=== PATIENT | female | born 1975 | race Hispanic/Latino ===

== ENCOUNTER 2020-11-16 11:52 | Inpatient (IN) | payer OTHER ==
[2020-11-16] MEDS ORDERED: ACETAMINOPHEN 325 MG TAB PO PRN (13:10)
[2020-11-16] MEDS ORDERED: miSOPROStol 200 MCG TAB PR PRN (13:10)
[2020-11-16] MEDS ORDERED: fentaNYL 100 MCG/2 ML INJ IV PRN (13:10)
[2020-11-16] MEDS ORDERED: ONDANSETRON 4 MG/2 ML INJ IV PRN (13:10)
[2020-11-16] MEDS ORDERED: MINERAL OIL 30 ML ORAL LIQD PO PRN (13:10)
[2020-11-16] MEDS ORDERED: ePHEDrine SULFATE 50 MG/1 ML INJ IV PRN (13:10)
[2020-11-16] MEDS ORDERED: OXYTOCIN 10 UNIT/1 ML INJ IM PRN (13:10)
[2020-11-16] MEDS ORDERED: NalbUPHINE 10 MG/1 ML INJ IV PRN (13:10)
[2020-11-16] MEDS ORDERED: TERBUTALINE 1 MG/1 ML INJ SUB-Q PRN (13:10)
[2020-11-16] MEDS ORDERED: LOPERAMIDE 2 MG CAP PO PRN (13:10)
[2020-11-16] MEDS ORDERED: METHYLERGONOVINE MALEATE 0.2 MG/ML VIAL IM PRN (13:10)
[2020-11-16] MEDS ORDERED: BUTORPHANOL 2 MG/1 ML INJ IV PRN ×2 (13:10)
--- NOTE | 2020-11-16 13:10 | History and Physical Report ---
History of Present Illness Date of examination: 11/16/20 Date of admission: 11/16/20 11:53 Chief complaint: [facility]/t demise discovered today History of present illness: EDC Calculations by LMP: 03/27/2021 Past History : 2 Term Births: 1 Premature Births: 0 Living Children: 1 Para: 1 Mult. Births: 0 Prev : 0 Prev. attempt? 0 Aborta: 0 Elect. Ab: 0 Spont. Ab: 0 Ectopics: 0 # 1 Delivery date: 03/27/2012 Weeks Gestation: 38 Delivery type: Vaginal Anesthesia type: none Delivery location: [facility] Sex: female weight: 7.31 Comments: none Risk Factors: Smoked Tobacco Use: Never smoker Smokeless Tobacco Use: Never Passive smoke exposure: no Drug use: no HIV high-risk behavior: no Alcohol use: no Exercise: yes Times per week: 5 Type of Exercise: cycling Seatbelt use: 100 % Past Medical History: Reviewed history and no changes required: Negative Past Medical History Past Surgical History: Reviewed history from 08/10/2011 and no changes required: Breast Biopsy: (2008) bilateral Past Medical History Abnormal PAP: negative MICHA Exposure: negative Infertility: negative Uterine Anomaly: negative Uterine Surgery (not C/S): negative 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 Infection History Hx of STD: none HIV Risk Eval: no Hepatitis B Risk Eval: low risk Personal hx. of genital herpes: no Partner hx. of genital herpes: no Rash, Viral, or Febrile illness since last LMP? no Varicella/Chicken Pox Status: Previous Disease Genetic History ADVANCED MATERNAL AGE Congenital Heart Defect: Mom: no Dad: no Shaun Disease: Mom: no Dad: no Thalassemia Mom: no Dad: no Neural Tube Defect Mom: no Dad: no Down's Syndrome Mom: no Dad: no Edward-Sachs Mom: no Dad: no Sickle Cell Disease/Trait Mom: no Dad: no Hemophilia Mom: no Dad: no Muscular Dystrophy Mom: no Dad: no Cystic Fibrosis Mom: no Dad: no [place] Chorea Mom: no Dad: no Mental Retardation Mom: no Dad: no Fragile X Mom: no Dad: no Other Genetic/Chromosomal Disorder Mom: no Dad: no Child w/other defect Mom: no Dad: no Enviromental Exposures Xray Exposure: no Medication, drug, or alcohol use since LMP: no Chemical/Other Exposure: no Exposure to Cat Liter: no Hx of Parvovirus (Fifth Disease): no Occupational Exposure to Children: none Active Medications (reviewed today): ONDANSETRON 8 MG ORAL TABLET DISINTEGRATING (ONDANSETRON) 1 PO q12hrs PRN nausea PNV () Current Allergies (reviewed today): No known allergies Past History Past Medical History: no pertinent history Past Surgical History: breast surgery (breast biopsy 2009) 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 denies: smoking, alcohol abuse, prescription drug abuse, IV drug use - Obstetrical History Expected Date of Delivery: 03/27/21 Actual Gestation: 21 Week(s) 2 Day(s) : 2 Para: 1 Hx # Term Pregnancies: 1 Number of Pregnancies: 0 Spontaneous Abortions: 0 Induced : 0 Number of Living Children: 1 Medications and Allergies Allergies Allergy/AdvReac Type Severity Reaction Status Date / Time No Known Allergies Allergy Unverified 11/16/20 12:45 Review of Systems All systems: negative - Vital Signs Vital signs: Vital Signs Pulse BP 91 H 141/74 11/16/20 12:56 11/16/20 12:56 Temp Pulse Resp BP Pulse Ox 91 H 141/74 11/16/20 12:56 11/16/20 12:56 - Physical Exam Breasts: Positive: normal Cardiovascular: Regular rate Lungs: Positive: Normal air movement Abdomen: Positive: normal appearance, soft Genitourinary (Female): Positive: normal external genitalia, normal perenium Vulva: both: normal Vagina: Positive: normal moisture Uterus: Positive: normal size, normal contour Anus/Rectum: Positive: normal perianal skin Extremities: Positive: normal Deep Tendon Reflex Grade: Normal +2 - Obstetrical Uterine Contraction Monitor Mode: External Results All other labs normal. Assessment and Plan 45 y/o @ 21+2 weeks gestation admitted for IOL w/ 21w2d demise. [facility] and demise was discovered on routine u/s. Plan of care discussed with patient and , all questions addressed. pt unsure on seeing baby after delivery. She also is planning on declining any genetic testing on baby. All questions addressed. Will start with PO cytotec q4hrs at this time. RN aware of plan. - Patient Problems (1) 21 weeks gestation of Current Visit: Yes Status: Acute (2) IUFD at 20 weeks or more of gestation Current Visit: Yes Status: Acute Plan to address problem: Cytotec 400 MCG PO q4hrs RN to initiate [facility] [facility] program
[2020-11-16] MEDS ORDERED: OXYTOCIN DRIP 30 UNITS/500 ML BAG IV SCH ×2 (14:00→15:00)
[2020-11-16] MEDS ORDERED: CARBOPROST TROMETHAMINE 250 MCG/1 ML INJ IM PRN (14:00)
[2020-11-16] MEDS ORDERED: LIDOCAINE (2%) 20 MG/1 ML VIAL 20 ML MDV INFILTRATI ONE (14:10)
[2020-11-16] MEDS ORDERED: miSOPROStol 25 MCG TAB VG ONE (14:10)
[2020-11-16] MEDS ORDERED: LACTATED RINGERS 1,000 ML IV SCH (14:15)
[2020-11-16 16:52] LABS: Hematocrit 32.8 % (30.3-42.9); Hemoglobin 11.7 gm/dl (10.1-14.3); Mean Corpuscular HGB Conc 36 % (30-34); Mean Corpuscular Volume 94 fl (79-97); Platelet Count 287 K/mm3 (140-440); Red Blood Count 3.49 M/mm3 (3.65-5.03); Red Cell Distribution Width 13.7 % (13.2-15.2)
[2020-11-16] MEDS: miSOPROStol 200 MCG TAB PO SCH ×2 (16:56→21:37)
--- NOTE | 2020-11-16 23:33 | Progress Note ---
Assessment and Plan pt resting after pain medication, she began having cramping after second dose of PO cytotec. no bleeding or leaking. reviewed pain management options with patient and . All questions addressed. - Patient Problems (1) 21 weeks gestation of Current Visit: Yes Status: Acute (2) IUFD at 20 weeks or more of gestation Current Visit: Yes Status: Acute Subjective - Subjective Date of service: 11/16/20 Principal diagnosis: IUFD @ 21wks; induction Interval history: EDC Calculations by LMP: 03/27/2021 Past History : 2 Term Births: 1 Premature Births: 0 Living Children: 1 Para: 1 Mult. Births: 0 Prev : 0 Prev. attempt? 0 Aborta: 0 Elect. Ab: 0 Spont. Ab: 0 Ectopics: 0 # 1 Delivery date: 03/27/2012 Weeks Gestation: 38 Delivery type: Vaginal Anesthesia type: none Delivery location: [facility] Sex: female weight: 7.31 Comments: none Risk Factors: Smoked Tobacco Use: Never smoker Smokeless Tobacco Use: Never Passive smoke exposure: no Drug use: no HIV high-risk behavior: no Alcohol use: no Exercise: yes Times per week: 5 Type of Exercise: cycling Seatbelt use: 100 % Past Medical History: Reviewed history and no changes required: Negative Past Medical History Past Surgical History: Reviewed history from 08/10/2011 and no changes required: Breast Biopsy: (2008) bilateral Past Medical History Abnormal PAP: negative MICHA Exposure: negative Infertility: negative Uterine Anomaly: negative Uterine Surgery (not C/S): negative 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 Infection History Hx of STD: none HIV Risk Eval: no Hepatitis B Risk Eval: low risk Personal hx. of genital herpes: no Partner hx. of genital herpes: no Rash, Viral, or Febrile illness since last LMP? no Varicella/Chicken Pox Status: Previous Disease Genetic History ADVANCED MATERNAL AGE Congenital Heart Defect: Mom: no Dad: no Shaun Disease: Mom: no Dad: no Thalassemia Mom: no Dad: no Neural Tube Defect Mom: no Dad: no Down's Syndrome Mom: no Dad: no Edward-Sachs Mom: no Dad: no Sickle Cell Disease/Trait Mom: no Dad: no Hemophilia Mom: no Dad: no Muscular Dystrophy Mom: no Dad: no Cystic Fibrosis Mom: no Dad: no [place] Chorea Mom: no Dad: no Mental Retardation Mom: no Dad: no Fragile X Mom: no Dad: no Other Genetic/Chromosomal Disorder Mom: no Dad: no Child w/other defect Mom: no Dad: no Enviromental Exposures Xray Exposure: no Medication, drug, or alcohol use since LMP: no Chemical/Other Exposure: no Exposure to Cat Liter: no Hx of Parvovirus (Fifth Disease): no Occupational Exposure to Children: none Active Medications (reviewed today): ONDANSETRON 8 MG ORAL TABLET DISINTEGRATING (ONDANSETRON) 1 PO q12hrs PRN nausea PNV () Current Allergies (reviewed today): No known allergies Patient reports: contractions, no loss of fluid, no vaginal bleeding Objective - Vital Signs Vital Signs: Vital Signs - 12hr 11/16/20 11/16/20 11/16/20 12:56 21:42 22:58 Pulse Rate 91 H 86 Respiratory 16 Rate Blood Pressure 141/74 123/71 - Exam Breasts: normal Cardiovascular: Regular rate Lungs: Normal air movement Abdomen: Present: normal appearance, soft Uterus: Present: normal Uterine Contraction Monitor Mode: Palpation Uterine Contraction Pattern: Irregular Uterine Tone Measurement Phase: Contraction Uterine Contraction Intensity: Mild Extremities: normal Deep Tendon Reflex Grade: Normal +2 - Labs Labs: Abnormal Labs 11/16/20 16:11 RBC 3.49 L MCH 34 H MCHC 36 H Laboratory Results - last 24 hr 11/16/20 11/16/20 11/16/20 16:11 16:11 16:11 WBC 9.5 RBC 3.49 L Hgb 11.7 Hct 32.8 MCV 94 MCH 34 H MCHC 36 H RDW 13.7 Plt Count 287 Syphilis IgG Antibody Nonreactive Blood Type AB POSITIVE Antibody Screen Negative
--- NOTE | 2020-11-17 01:01 | Procedure Note ---
OB Delivery Note - Delivery Date of Delivery: 11/17/20 (21wk IUFD) Shuffle Board Operator: MIGEL GARCIA - Vaginal Delivery presentation: breech Intrapartum events: other(please specify) (IUFD) Delivery induction: misoprostol Delivery monitor: external uterine Route of delivery: Episiotomy: none Delivery laceration: none Anesthesia: intravenous Delivery comments: baby birthed over intact perineum, breech presentation. baby is very edematous, appears to be female. Cord clamped, pitocin infusing. waiting on placenta to expel. Dr. Cooper updated. - A at 1 minute: 0 at 5 minutes: 0 Infant Gender: Female
--- NOTE | 2020-11-17 01:23 | Event Note ---
Date: 11/17/20 Placenta delivered spontaneously and appears to be intact. lochia scant and fundus firm at this time.
[2020-11-17] MEDS ORDERED: PROMETHAZINE 25 MG TAB PO PRN (04:13)
[2020-11-17] MEDS ORDERED: diphenhydrAMINE 25 MG CAP PO PRN (04:13)
[2020-11-17] MEDS ORDERED: WITCH HAZEL/ GLYCERIN PAD TP PRN (04:13)
[2020-11-17] MEDS ORDERED: LANOLIN/ZINC/DIMETHICONE (LANSINOH) 7 GM TP PRN (04:13)
[2020-11-17] MEDS ORDERED: KETOROLAC 30 MG/1 ML INJ IV PRN (04:13)
[2020-11-17] MEDS ORDERED: ACETAMINOPHEN 325 MG TAB PO PRN (04:13)
[2020-11-17] MEDS ORDERED: MAGNESIUM HYDROXIDE (MOM) ORAL LIQD UDC PO PRN (04:13)
[2020-11-17] MEDS: IBUPROFEN 800 MG TAB PO SCH ×2 (04:38→12:00)
--- NOTE | 2020-11-17 06:18 | Discharge Summary ---
Providers - Providers Date of Admission: 11/16/20 11:53 Date of discharge: 11/17/20 (pt desires d/c later today if possible) Attending physician: GIGI NEVAREZ Primary care physician: DYNAMOTOR REPAIRER Hospitalization Reason for admission: IUFD (21w) Delivery: Episiotomy: none Laceration: none Other procedures: none complications: none Discharge diagnosis: intrapartum demise Hospital course: uncomplicated vaginal delivery of 21 w demise Pt resting No c/o voiced. Appropriate grieving. present in room. VSS afebrile. FF well below umb Lochia scant H&H pending @ 0700. Stable s/p delivery of demise. P: will d/c later today if condition remains stable. Instructions given. Declines BC. Condition at discharge: Good Disposition: DC-01 TO HOME OR SELFCARE - Discharge Diagnoses (1) Spontaneous vaginal delivery Status: Acute Comment: RTO 4 weeks PP care Plan - Provider Discharge Summary Activity: routine, no sex for 6 weeks, no heavy lifting 4 weeks, no strenuous exercise Diet: routine Instructions: routine Additional instructions: [] Smoking cessation referral if applicable(refer to patient education folder for contact #) [] Refer to [facility] Booklet Call your doctor immediately for: * Fever > 100.5 * Heavy vaginal bleeding ( >1 pad per hour) * Severe persistent headache * Shortness of breath * Reddened, hot, painful area to leg or breast * Drainage or odor from incision. * Keep incision clean and dry at all times and follow doctor's instructions regarding bathing/showering - Follow up plan Follow up: PRIMARY CARE, [Primary Care Provider] - 7 Days JOSE JOHNSON CNM [Advanced Practice Nurse] - 12/20/20 (Please call [phone] to schedule your visit in 4 weeks. Motrin/ibuprofen for pain/cramping. Call with in concerns. )
[2020-11-17] MEDS ORDERED: PRENATAL VIT27-FE FUMARATE-FOLIC ACID VIT TAB PO SCH (10:00)
[2020-11-17 10:05] LABS: Hematocrit 33.5 % (30.3-42.9); Hemoglobin 11.7 gm/dl (10.1-14.3)
[2020-11-17 15:51] VITALS: BP 119/69
[2020-11-18] MEDS ORDERED: MEASLES, MUMPS & RUBELLA 12,500 UNIT/0.5 ML VACCINE SUB-Q ONE (01:26)
== END 2020-11-17 16:30 | disposition home or self-care (01) | DRG 806 ==
LOC: TRG 11:52 → LD 11:53 → OB 11-17 03:12
PROVIDERS: ADMIT Obstetrics & Gynecology; ATTEND Obstetrics & Gynecology
PROC: 10E0XZZ Delivery of Products of Conception, External Approach (ICD-10-PCS; principal; 2020-11-17)
PROC: 3E033VJ Introduction of Other Hormone into Peripheral Vein, Percutaneous Approach (ICD-10-PCS; 2020-11-17)
DX: O32.1XX0 Maternal care for breech presentation, not applicable or unspecified (principal); O36.4XX0 Maternal care for intrauterine death, not applicable or unspecified; Z37.1 Single stillbirth; Z20.822 Contact with and (suspected) exposure to COVID-19; Z3A.21 21 weeks gestation of pregnancy; Z82.49 Family history of ischemic heart disease and other diseases of the circulatory system
CPT/HCPCS: 36415; 85014; 85018; 85027; 86592; 86850; 86900; 86901; 88305; G0378; J2300; J7120